=== PATIENT | male | born 1960 | race Caucasian/White ===

== ENCOUNTER 2017-08-27 12:01 | Inpatient (IN) | payer MEDICARE ==
[~2017-08-27] VITALS: Ht 182.9 cm; Wt 60.3 kg
[~2017-08-27 12:01] MED LIST: LACT10SO5 PO; NICO-485 TD; SEVE800T7 PO
[2017-08-27] MEDS ORDERED: HYDR-3307 PO (13:06)
[2017-08-27] MEDS ORDERED: ONDA4TAB7 PO (13:06)
[2017-08-27] MEDS ORDERED: CLON-365 PO (13:06)
[2017-08-27] MEDS ORDERED: OXYC-296 PO (13:06)
[2017-08-27] MEDS ORDERED: ONDANSETRON ODT 4 MG ONE (13:17)
[2017-08-27] MEDS ORDERED: MORPHINE SULFATE 4 MG/ML, 1ML ONE ×2 (13:18→14:49)
[2017-08-27] MEDS: MORPHINE SULFATE 4 MG/ML, 1ML IVPush PRN ×2 (13:21→14:51)
[2017-08-27] MEDS ORDERED: ONDANSETRON ODT 4 MG PO ONE (13:30)
[2017-08-27] MEDS ORDERED: SODIUM CHLORIDE FLUSH 10ML SYR IVF ONE ×2 (13:30→14:30)
[2017-08-27 13:34] LABS: BASOPHILS # (AUTO) 0.06 x10^3/uL (0-0.1); BASOPHILS % (AUTO) 1 % (0-1); EOSINOPHILS % (AUTO) 6 % (1-7); LYMPHOCYTES % (AUTO) 12 % (22-44); MD NO; MEAN CORPUSCULAR HGB CONC 32.8 g/dL (33.2-36.2); MEAN CORPUSCULAR VOLUME 91.4 fL (81-97); MEAN PLATELET VOLUME 8.1 fL (7.4-10.4); MONOCYTES # (AUTO) 0.14 x10^3/uL (0.2-0.8); MONOCYTES % (AUTO) 2 % (2-9); NEUTROPHILS # (AUTO) 5.34 x10^3/uL (1.8-6.8); NEUTROPHILS % (AUTO) 79 % (42-75); PLATELET COUNT 107 x10^3/uL (130-400); RED BLOOD COUNT 3.74 x10^6/uL (4.38-5.82); RED CELL DISTRIBUTION WIDTH 19.4 % (9.4-14.8)
[2017-08-27 13:45] LABS: ALBUMIN 2.3 g/dL (3.4-5.0); ANION GAP 14 mmol/L (5-15); CALCIUM 8.4 mg/dL (8.5-10.1); CHLORIDE 101 mmol/L (98-107)
[2017-08-27 13:49] LABS: ALANINE AMINOTRANSFERASE 27 U/L (12-78); ALKALINE PHOSPHATASE 183 U/L (45-117); BILIRUBIN,TOTAL 0.7 mg/dL (0.2-1.0); TOTAL PROTEIN 8.3 g/dL (6.4-8.2)
[2017-08-27] MEDS ORDERED: SODIUM POLYSTYRENE SULFONATE ORAL SUSP ONE (14:12)
[2017-08-27] MEDS ORDERED: SODIUM BICARB 8.4%, 50ML SYRINGE ONE (14:13)
[2017-08-27] MEDS ORDERED: DEXTROSE 50%, 50ML SYRINGE ONE (14:13)
[2017-08-27] MEDS ORDERED: INSULIN REGULAR 100 UNITS/ML, 3ML VIAL ONE (14:15)
[2017-08-27] MEDS ORDERED: CALCIUM CHLORIDE 10%, 10ML SYR ONE (14:16)
[2017-08-27] MEDS ORDERED: CALCIUM CHLORIDE 6.8 MEQ in SODIUM CHLORIDE 0.9% 100 ML IV ONE (14:30)
[2017-08-27] MEDS ORDERED: CALCIUM CHLORIDE 10%, 10ML SYR IVPush ONE ×2 (14:30→15:00)
[2017-08-27] MEDS ORDERED: SODIUM POLY SULFONATE UDC 15 GM/60 ML PO ONE (14:30)
[2017-08-27] MEDS ORDERED: DEXTROSE 50%, 50ML SYRINGE IVPush ONE (14:30)
[2017-08-27] MEDS ORDERED: SODIUM BICARB 8.4%, 50ML SYRINGE IVPush ONE (14:30)
[2017-08-27] MEDS ORDERED: INSULIN REGULAR 100 UNITS/ML, 3ML VIAL IVPush ONE (14:30)
[2017-08-27] MEDS ORDERED: SODIUM CHLORIDE FLUSH 10ML SYR IVF PRN (15:00)
[2017-08-27] MEDS ORDERED: POLYETHYLENE GLYCOL 17 GM PACKET PO PRN (16:00)
[2017-08-27] MEDS ORDERED: hydrALAzine 20 MG/ML, 1ML IVPush PRN (16:00)
[2017-08-27] MEDS ORDERED: BISACODYL 10 MG SUPP PR PRN (16:00)
[2017-08-27] MEDS ORDERED: ERGOCALCIFEROL 50,000 UNIT CAPSULE PO SCH (16:30)
[2017-08-27 16:35] VITALS: BP 100/66
[2017-08-27] MEDS: LACTULOSE 10 GM/15 ML UDC PO SCH (20:25)
[2017-08-27] MEDS: NICOTINE 7 MG/24 HR PATCH.TD24 TD SCH (20:25)
[2017-08-27] MEDS ORDERED: ALBUMIN HUMAN 25% 50 ML IV PRN ×2 (21:30→22:00)
[2017-08-27 23:08] VITALS: BP 101/63
[2017-08-28 01:43] VITALS: BP 101/68
[2017-08-28] MEDS: OXYcodone IR 5MG TABLET PO PRN ×3 (05:23→21:05)
[2017-08-28] MEDS ORDERED: ONDANSETRON ODT 4 MG ONE ×2 (05:34→21:14)
[2017-08-28 05:36] LABS: MEAN CORPUSCULAR HEMOGLOBIN 30.2 pg (27.5-34.5); MEAN CORPUSCULAR VOLUME 91.5 fL (81-97); RED BLOOD COUNT 3.17 x10^6/uL (4.38-5.82)
[2017-08-28] MEDS: ONDANSETRON 2MG/ML, 2ML IVPush PRN ×2 (05:36→12:59)
[2017-08-28 05:45] LABS: CHLORIDE 102 mmol/L (98-107)
[2017-08-28 06:02] LABS: % IRON SATURATION 38 % (20-55); ALANINE AMINOTRANSFERASE 26 U/L (12-78); ALBUMIN 2.1 g/dL (3.4-5.0); ALKALINE PHOSPHATASE 153 U/L (45-117); ANION GAP 9 mmol/L (5-15); BILIRUBIN,TOTAL 0.7 mg/dL (0.2-1.0); CALCIUM 7.9 mg/dL (8.5-10.1); CREATININE 5.19 mg/dL (0.7-1.3); IRON LEVEL 70 mcg/dL (65-175); TOTAL IRON BINDING CAPACITY 184 mcg/dL (250-450); TOTAL PROTEIN 7.1 g/dL (6.4-8.2)
[2017-08-28 06:18] LABS: EOSINOPHILS % (AUTO) 6 % (1-7); LYMPHOCYTES % (AUTO) 15 % (22-44); MEAN PLATELET VOLUME 7.4 fL (7.4-10.4); MONOCYTES % (AUTO) 8 % (2-9); NEUTROPHILS % (AUTO) 71 % (42-75); PLATELET COUNT 57 x10^3/uL (130-400)
[2017-08-28 06:19] LABS: BASOPHILS # (AUTO) 0.01 x10^3/uL (0-0.1); BASOPHILS % (AUTO) 0 % (0-1); EOSINOPHILS # (AUTO) 0.24 x10^3/uL (0-0.4); LYMPHOCYTES # (AUTO) 0.58 x10^3/uL (1-3.4); MD SCAN; NEUTROPHILS # (AUTO) 2.84 x10^3/uL (1.8-6.8)
[2017-08-28 07:26] VITALS: BP 108/72
[2017-08-28] MEDS: LACTULOSE 10 GM/15 ML UDC PO SCH ×2 (09:00→21:00)
[2017-08-28] MEDS: LORazepam 1MG TABLET PO SCH (10:30)
[2017-08-28 13:59] VITALS: BP 100/63
[2017-08-28 20:43] VITALS: BP 90/63
[2017-08-28] MEDS: NICOTINE 7 MG/24 HR PATCH.TD24 TD SCH (21:00)
[2017-08-28] MEDS: ONDANSETRON ODT 4 MG PO PRN (21:17)
[2017-08-29 06:05] LABS: ALBUMIN 2.6 g/dL (3.4-5.0); ANION GAP 7 mmol/L (5-15); CHLORIDE 100 mmol/L (98-107); CREATININE 3.45 mg/dL (0.7-1.3)
[2017-08-29 06:30] LABS: MEAN CORPUSCULAR HEMOGLOBIN 30.4 pg (27.5-34.5); MEAN CORPUSCULAR HGB CONC 33.1 g/dL (33.2-36.2); MEAN CORPUSCULAR VOLUME 91.7 fL (81-97); MEAN PLATELET VOLUME 7.5 fL (7.4-10.4); PLATELET COUNT 54 x10^3/uL (130-400); RED BLOOD COUNT 3.16 x10^6/uL (4.38-5.82); RED CELL DISTRIBUTION WIDTH 18.7 % (9.4-14.8)
[2017-08-29 07:22] LABS: BASOPHILS # (AUTO) 0.01 x10^3/uL (0-0.1); BASOPHILS % (AUTO) 0 % (0-1); EOSINOPHILS # (AUTO) 0.31 x10^3/uL (0-0.4); EOSINOPHILS % (AUTO) 8 % (1-7); LYMPHOCYTES % (AUTO) 15 % (22-44); MD SCAN; MONOCYTES # (AUTO) 0.24 x10^3/uL (0.2-0.8); MONOCYTES % (AUTO) 6 % (2-9); NEUTROPHILS # (AUTO) 2.84 x10^3/uL (1.8-6.8); NEUTROPHILS % (AUTO) 71 % (42-75)
[2017-08-29 08:13] VITALS: BP 92/63
[2017-08-29] MEDS: LORazepam 1MG TABLET PO SCH ×2 (08:49→22:02)
[2017-08-29] MEDS: OXYcodone IR 5MG TABLET PO PRN ×3 (08:49→21:01)
[2017-08-29] MEDS: ONDANSETRON ODT 4 MG PO PRN (08:49)
[2017-08-29] MEDS: LACTULOSE 10 GM/15 ML UDC PO SCH ×3 (09:00→22:02)
[2017-08-29 14:11] VITALS: BP 90/49
[2017-08-29] MEDS: MORPHINE SULFATE 4 MG/ML, 1ML IVPush PRN ×2 (18:57→22:12)
[2017-08-29] MEDS: NICOTINE 7 MG/24 HR PATCH.TD24 TD SCH (21:00)
[2017-08-29] MEDS: LORazepam 2 MG/ML, 1ML IVPush PRN (21:01)
[2017-08-30] MEDS: LORazepam 2 MG/ML, 1ML IVPush PRN ×6 (00:39→15:01)
[2017-08-30] MEDS: MORPHINE SULFATE 4 MG/ML, 1ML IVPush PRN ×4 (01:46→08:34)
[2017-08-30 08:03] VITALS: BP 101/57
[2017-08-30] MEDS: LACTULOSE 10 GM/15 ML UDC PO SCH (19:23)
[2017-08-30] MEDS: NICOTINE 7 MG/24 HR PATCH.TD24 TD SCH (19:23)
[2017-08-31] MEDS: LORazepam 2 MG/ML, 1ML IVPush PRN ×2 (00:05→04:20)
[2017-08-31 08:00] VITALS: BP 85/47
[2017-08-31] MEDS: LORazepam 1MG TABLET PO SCH (09:00)
[2017-08-31] MEDS: LACTULOSE 10 GM/15 ML UDC PO SCH ×2 (09:00→21:02)
[2017-08-31] MEDS: NICOTINE 7 MG/24 HR PATCH.TD24 TD SCH (21:03)
== END 2017-09-01 03:18 | disposition expired | DRG 441 ==
LOC: ED 14:47 → EDIP 14:48 → ED 15:02 → 4WST 16:03 → 3NW 08-29 17:34
PROVIDERS: ADMIT Hospitalist; ATTEND Hospitalist
PROC: 5A1D70Z Performance of Urinary Filtration, Intermittent, Less than 6 Hours Per Day (ICD-10-PCS; principal; 2017-08-27)
PROC: 5A1D70Z Performance of Urinary Filtration, Intermittent, Less than 6 Hours Per Day (ICD-10-PCS; 2017-08-28)
DX: K72.90 Hepatic failure, unspecified without coma (principal); N18.6 End stage renal disease; E43 Unspecified severe protein-calorie malnutrition; D69.59 Other secondary thrombocytopenia; E11.22 Type 2 diabetes mellitus with diabetic chronic kidney disease; I12.0 Hypertensive chronic kidney disease with stage 5 chronic kidney disease or end stage renal disease; C22.0 Liver cell carcinoma; E87.5 Hyperkalemia; R18.8 Other ascites; Z68.1 Body mass index [BMI] 19.9 or less, adult; Z51.5 Encounter for palliative care; Z66 Do not resuscitate; N25.0 Renal osteodystrophy; B18.2 Chronic viral hepatitis C; F32.9 Major depressive disorder, single episode, unspecified; E55.9 Vitamin D deficiency, unspecified; F17.210 Nicotine dependence, cigarettes, uncomplicated; G89.29 Other chronic pain; J45.909 Unspecified asthma, uncomplicated; K52.9 Noninfective gastroenteritis and colitis, unspecified; R62.7 Adult failure to thrive; M41.9 Scoliosis, unspecified; K74.60 Unspecified cirrhosis of liver; D64.9 Anemia, unspecified; Z91.15 Patient's noncompliance with renal dialysis; Z99.2 Dependence on renal dialysis; Z85.05 Personal history of malignant neoplasm of liver; Z86.14 Personal history of Methicillin resistant Staphylococcus aureus infection
CPT/HCPCS: 36415; 74022; 76700; 80053; 80069; 82140; 82150; 82306; 82728; 83540; 83550; 83690; 83735; 83970; 84100; 84550; 85025; 86480; 86705; 86706; 87340; 93005; 96374; 96375; J2270; J2405; P9047; Q0162; J2060